=== PATIENT | male | born 1995 | race Caucasian/White ===

== ENCOUNTER 2016-04-11 23:24 | Emergency (ER) | payer OTHER ==
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
--- NOTE | 2016-04-12 02:50 | ED ORDER SUMMARY ---
..... Patient: DANIEL BOATENG OrderSheet [facility] VisitID: [id number] [address] [address] 21y, M Registration Date/Time: 04/11/2016 ORDER SHEET Weight: 56.6 kg (stated) Allergies: No Known Drug Allergy GENERAL ORDERS: CT Cervical Spine wo Cont Urgent (00:00 04/12/2016 HSoule verbal order read back to Zara SAMS) (Ack 0:03 AMcQuoid ER Tech1) (0:52 GUnger) CT Head wo Cont Urgent (00:04/12/2016 HSoule verbal order read back to Zara SAMS) (Ack 0:03 AMcQuoid ER Tech1) (0:52 GUnger) CBC w Diff Urgent (00:04/12/2016 Zara SAMS) (Ack 0:03 AMcQuoid ER Tech1) (1:43 AMcQuoid ER Tech1) CMP Urgent (00:04/12/2016 Zara SAMS) (Ack 0:03 AMcQuoid ER Tech1) (1:42 AMcQuoid ER Tech1) UA-Culture if indicated Urgent (00:04/12/2016 Zara SAMS) (Ack 0:03 AMcQuoid ER Tech1) (1:42 AMcQuoid ER Tech1) Amylase Urgent (00:04/12/2016 Zara SAMS) (Ack 0:03 AMcQuoid ER Tech1) (1:42 AMcQuoid ER Tech1) Lipase Urgent (00:04/12/2016 Zara SAMS) (Ack 0:03 AMcQuoid ER Tech1) (1:42 AMcQuoid ER Tech1) Urine Drug Screen Urgent (00:04/12/2016 Zara SAMS) (Ack 0:03 AMcQuoid ER Tech1) (1:42 AMcQuoid ER Tech1) CT Sinus/Facial Bones wo Cont Urgent (00:04/12/2016 Zara SAMS) (Ack 0:26 AMcQuoid ER Tech1) (0:52 GUnger) MEDICATION ORDERS: IV FLUIDS: IV NS : initial bolus 500 mL (1000 mL/hr), then 125 mL/hr for 4h (NOW); Urgent (00:02 04/12/2016 Zara SAMS) (Ack 0:15 HSoule) (1:23 HSoule) IV Saline Lock (00:02 04/12/2016 Zara SAMS) (Ack 0:14 HSoule) (1:22 HSoule) ORDER SHEET NOTES: [Electronically signed by Nena Whitt (04:05 04/12/2016)] [Electronically signed by Jin Deal MD (05:10 04/12/2016)] [Electronically locked/signed by Nena Whitt (04:05 04/12/2016)]
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
--- NOTE | 2016-04-12 02:50 | ED ORDER SUMMARY ---
..... Patient: DANIEL BOATENG OrderSheet [facility] VisitID: [id number] [place] [address] 21y, M Registration Date/Time: 04/11/2016 ORDER SHEET Weight: 56.6 kg (stated) Allergies: No Known Drug Allergy GENERAL ORDERS: CT Cervical Spine wo Cont Urgent (00:00 04/12/2016 HSoule verbal order read back to Zara SAMS) (Ack 0:03 AMcQuoid ER Tech1) (0:52 GUnger) CT Head wo Cont Urgent (00:04/12/2016 HSoule verbal order read back to Zara SAMS) (Ack 0:03 AMcQuoid ER Tech1) (0:52 GUnger) CBC w Diff Urgent (00:04/12/2016 Zara SAMS) (Ack 0:03 AMcQuoid ER Tech1) (1:43 AMcQuoid ER Tech1) CMP Urgent (00:04/12/2016 Zara SAMS) (Ack 0:03 AMcQuoid ER Tech1) (1:42 AMcQuoid ER Tech1) UA-Culture if indicated Urgent (00:04/12/2016 Zara SAMS) (Ack 0:03 AMcQuoid ER Tech1) (1:42 AMcQuoid ER Tech1) Amylase Urgent (00:04/12/2016 Zara SAMS) (Ack 0:03 AMcQuoid ER Tech1) (1:42 AMcQuoid ER Tech1) Lipase Urgent (00:04/12/2016 Zraa SAMS) (Ack 0:03 AMcQuoid ER Tech1) (1:42 AMcQuoid ER Tech1) Urine Drug Screen Urgent (00:04/12/2016 Zara SAMS) (Ack 0:03 AMcQuoid ER Tech1) (1:42 AMcQuoid ER Tech1) CT Sinus/Facial Bones wo Cont Urgent (00:04/12/2016 Zara SAMS) (Ack 0:26 AMcQuoid ER Tech1) (0:52 GUnger) MEDICATION ORDERS: IV FLUIDS: IV NS : initial bolus 500 mL (1000 mL/hr), then 125 mL/hr for 4h (NOW); Urgent (00:02 04/12/2016 Zara SAMS) (Ack 0:15 HSoule) (1:23 HSoule) IV Saline Lock (00:02 04/12/2016 Zara SAMS) (Ack 0:14 HSoule) (1:22 HSoule) ORDER SHEET NOTES: [Electronically signed by Nena Whitt (04:05 04/12/2016)] [Electronically signed by Jin Deal MD (05:10 04/12/2016)] [Electronically locked/signed by Nena Whitt (04:05 04/12/2016)]
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
--- NOTE | 2016-04-12 05:10 | ED MAR SUMMARY ---
..... Medication Administration Record [facility] [address] [place] [address] Patient: DANIEL BOATENG Visit ID: [id number] 21y, M Weight: 56.6 kg Height/Length: 66 in BMI: 20.1 ALLERGIES: No Known Drug Allergy Start 01:23 04/12/2016 Nena Whitt,, Stop 03:10 04/12/2016 Nena Whitt, Medication Administered: IV NS (SALINE), Dose: IV Fluids over 30 minute(s), Rate: 1000 mL/hr, Dispensed: 1000 mL bag, Site: #1 right AC. Medication Ordered: IV NS : initial bolus 500 mL (1000 mL/hr), then 125 mL/hr for 4h (NOW); Urgent.
--- NOTE | 2016-04-12 05:10 | ED MED RECONCILIATION SUMMARY ---
Patient: DANIEL BOATENG Medication Reconciliation Report [facility] VisitID: [id number] [address] [place] [address] 21y, M Registration Date/Time: 04/11/2016 Weight: 56.6 kg Height/Length: 66 in. BMI: 20.1 ALLERGIES: No Known Drug Allergy The patient's Home Medications are listed below: NONE. The source(s) of the original Home Medication information: patient The following Medications were given to the patient in the Emergency Department: IV NS IV Fluids bolus 0, then 1000 mL/hr, administered: 04/12/2016 1:23:00 AM The following Medications were prescribed to the patient: Augmentin 875 mg: take 1 tablet orally every 12 hours for 7 days. Dispense fourteen (14). No refills. Substitution is permissible. -- Jin Deal MD Ultram 50 mg tablets: take 1-2 orally every 6 hours as needed for pain. Dispense twenty (20). No refills. Substitution is permissible. -- Jin Deal MD
--- NOTE | 2016-04-12 05:10 | ED MAR SUMMARY ---
..... Medication Administration Record [facility] [address] [place] [address] Patient: DANIEL BOATENG Visit ID: [id number] 21y, M Weight: 56.6 kg Height/Length: 66 in BMI: 20.1 ALLERGIES: No Known Drug Allergy Start 01:23 04/12/2016 Nena Whitt,, Stop 03:10 04/12/2016 Nena Whitt, Medication Administered: IV NS (SALINE), Dose: IV Fluids over 30 minute(s), Rate: 1000 mL/hr, Dispensed: 1000 mL bag, Site: #1 right AC. Medication Ordered: IV NS : initial bolus 500 mL (1000 mL/hr), then 125 mL/hr for 4h (NOW); Urgent.
--- NOTE | 2016-04-12 05:10 | ED MED RECONCILIATION SUMMARY ---
Patient: DANIEL BOATENG Medication Reconciliation Report [facility] VisitID: [id number] [address] [place] [address] 21y, M Registration Date/Time: 04/11/2016 Weight: 56.6 kg Height/Length: 66 in. BMI: 20.1 ALLERGIES: No Known Drug Allergy The patient's Home Medications are listed below: NONE. The source(s) of the original Home Medication information: patient The following Medications were given to the patient in the Emergency Department: IV NS IV Fluids bolus 0, then 1000 mL/hr, administered: 04/12/2016 1:23:00 AM The following Medications were prescribed to the patient: Augmentin 875 mg: take 1 tablet orally every 12 hours for 7 days. Dispense fourteen (14). No refills. Substitution is permissible. -- Jin Deal MD Ultram 50 mg tablets: take 1-2 orally every 6 hours as needed for pain. Dispense twenty (20). No refills. Substitution is permissible. -- Jin Deal MD
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
== END 2016-04-12 03:22 | disposition home or self-care (01) ==
LOC: ED SRH 23:24
DX: S02.2XXA Fracture of nasal bones, initial encounter for closed fracture (principal); S02.32XA Fracture of orbital floor, left side, initial encounter for closed fracture; S02.40FA Zygomatic fracture, left side, initial encounter for closed fracture; S02.642A Fracture of ramus of left mandible, initial encounter for closed fracture; V27.0XXA Motorcycle driver injured in collision with fixed or stationary object in nontraffic accident, initial encounter; Y93.I9 Activity, other involving external motion; Y92.410 Unspecified street and highway as the place of occurrence of the external cause; Y99.9 Unspecified external cause status; F17.210 Nicotine dependence, cigarettes, uncomplicated; F15.10 Other stimulant abuse, uncomplicated
CPT/HCPCS: 90004; 90100; 92235; 92530; 92760; 92761; 92762; 92763; 92764; 92765; 92766; 92767; 95059